=== PATIENT | female | born 1975 | race Caucasian/White ===

== ENCOUNTER 2017-03-28 21:43 | Emergency (ER) | payer OTHER ==
[2017-03-28 21:45] VITALS: BP 130/78; PULSE 81; RESP 15; TEMP 97.9; O2SAT 100
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
== END 2017-03-28 23:30 | disposition home or self-care (01) ==
LOC: NEPD 21:43
DX: S91.115A Laceration without foreign body of left lesser toe(s) without damage to nail, initial encounter (principal); W25.XXXA Contact with sharp glass, initial encounter; Y92.512 Supermarket, store or market as the place of occurrence of the external cause
CPT/HCPCS: 12001